=== PATIENT | female | born 1995 | race Two or more races ===

== ENCOUNTER → 2018-10-05 15:02 | Outpatient (CLI) | payer SELFPAY | END | disposition home or self-care (01) | LOC: D.MAMMO 15:00 → D.US 15:02 | DX: N64.4 Mastodynia (principal) ==

== ENCOUNTER → 2018-10-23 13:18 | Outpatient (CLI) | payer SELFPAY | END | disposition home or self-care (01) | LOC: D.US 13:18 | DX: R92.8 Other abnormal and inconclusive findings on diagnostic imaging of breast (principal) ==